=== PATIENT | female | born 2000 | race Caucasian/White ===

== ENCOUNTER 2020-11-26 19:09 | Emergency (ER) | payer OTHER ==
[~2020-11-26] VITALS: Ht 160 cm; Wt 54.0 kg
[2020-11-26 19:34] LABS: URINE BILIRUBIN NEGATIVE (Negative); URINE BLOOD TRACE (Negative); URINE CLARITY CLEAR; URINE COLOR YELLOW; URINE GLUCOSE-RANDOM* NEGATIVE (Negative); URINE KETONES NEGATIVE (Negative); URINE NITRITE-REFLEX NEGATIVE (Negative); URINE PROTEIN (DIPSTICK) NEGATIVE (Negative); URINE SPECIFIC GRAVITY 1.025 (1.005-1.035); URINE UROBILINOGEN 0.2 E.U./dl (0.2-1.0)
[2020-11-26 19:35] LABS: URINE LEUKOCYTES-REFLEX 1+ (Negative)
[2020-11-26 19:43] LABS: BACTERIA-REFLEX 1-9 Few /HPF (None Seen); SQUAMOUS >10 Many /LPF (0-3)
[2020-11-26 19:44] LABS: CASTS None Seen /LPF (None Seen); CRYSTALS None Seen /LPF (None Seen); MUCUS 0-3 Light strn/LPF (None Seen); URINE RBC 1-2 Rare /HPF (NONE SEEN); URINE WBC-REFLEX 0-5 Rare /HPF (0-5)
[2020-11-26 20:25] LABS: ABSOLUTE NEUTROPHILS 9.7 thou/uL (1.4-8.2); BASOPHILS 0.5 % (0.0-2.0); EOSINOPHILS 1.4 % (0.0-3.0); HEMATOCRIT 42.8 % (37.0-47.0); HEMOGLOBIN 14.1 gm/dL (12.0-15.0); LYMPHOCYTES 18.9 % (24.0-44.0); MCH 27.4 pg (26.0-34.0); MCHC 32.9 g/dL (28.0-37.0); MCV 83.3 fL (80.0-100.0); MONOCYTES 5.4 % (1.0-8.0); PLATELET COUNT 347 thou/uL (150-400); POLYS 73.8 % (36.0-66.0); RBC 5.13 mil/uL (4.20-5.00); RDW 16.7 % (10.5-14.5); WBC 13.1 thou/uL (4.0-11.0)
[2020-11-26 20:33] LABS: CALCIUM 9.7 mg/dL (8.5-10.1); CREATININE 0.8 mg/dL (0.6-1.0); POTASSIUM 4.1 mmol/L (3.5-5.1)
[2020-11-26] MEDS ORDERED: ZOFRAN ODT4 MG PO (20:44)
[2020-11-26] MEDS ORDERED: TYLENOL325 M1 PO (20:44)
[2020-11-26 20:54] VITALS: BP 121/85
== END 2020-11-26 20:55 | disposition home or self-care (01) ==
LOC: ER 19:09
PROVIDERS: Emergency Medicine
DX: Z98.890 Other specified postprocedural states (principal); O36.4XX0 Maternal care for intrauterine death, not applicable or unspecified; Z3A.21 21 weeks gestation of pregnancy

== ENCOUNTER 2020-11-28 03:25 | Emergency (ER) | payer OTHER ==
[~2020-11-28] VITALS: Ht 160 cm; Wt 54.0 kg
[~2020-11-28 03:25] MED LIST: TYLENOL325 M1 PO; ZOFRAN ODT4 MG PO
[2020-11-28 04:10] LABS: ABSOLUTE NEUTROPHILS 7.9 thou/uL (1.4-8.2); BASOPHILS 0.5 % (0.0-2.0); EOSINOPHILS 1.6 % (0.0-3.0); HEMATOCRIT 41.6 % (37.0-47.0); HEMOGLOBIN 13.7 gm/dL (12.0-15.0); LYMPHOCYTES 22.4 % (24.0-44.0); MCH 27.3 pg (26.0-34.0); MCV 82.8 fL (80.0-100.0); MONOCYTES 6.6 % (1.0-8.0); PLATELET COUNT 393 thou/uL (150-400); POLYS 68.9 % (36.0-66.0); RBC 5.02 mil/uL (4.20-5.00); RDW 16.5 % (10.5-14.5); WBC 11.5 thou/uL (4.0-11.0)
[2020-11-28 04:13] LABS: CALCIUM 10.1 mg/dL (8.5-10.1); CREATININE 0.9 mg/dL (0.6-1.0); POTASSIUM 4.1 mmol/L (3.5-5.1)
[2020-11-28 04:15] LABS: INR 0.94; PROTIME 10.3 Seconds (10.5-12.1)
[2020-11-28 04:19] LABS: ALBUMIN 3.5 g/dL (3.4-5.0); TOTAL BILIRUBIN 0.3 mg/dL (0.2-1.0); TOTAL PROTEIN 8.7 g/dL (6.4-8.2)
[2020-11-28 04:36] VITALS: BP 145/99
== END 2020-11-28 04:41 | disposition short-term general hospital (02) ==
LOC: ER 03:25
PROVIDERS: Emergency Medicine
DX: O03.9 Complete or unspecified spontaneous abortion without complication (principal); Z20.822 Contact with and (suspected) exposure to COVID-19; Z98.890 Other specified postprocedural states; Z79.899 Other long term (current) drug therapy